=== PATIENT | female | born 1965 | race Caucasian/White ===

== ENCOUNTER 2019-04-29 15:24 | Emergency (ER) | payer OTHER ==
[~2019-04-29] VITALS: Ht 154.9 cm; Wt 83.9 kg
[2019-04-29 15:39] VITALS: BP 175/107; Ht 154.9 cm; Wt 83.9 kg
== END 2019-04-29 17:25 | disposition home or self-care (01) ==
LOC: ED 15:24
DX: J02.9 Acute pharyngitis, unspecified (principal); R03.0 Elevated blood-pressure reading, without diagnosis of hypertension; G43.909 Migraine, unspecified, not intractable, without status migrainosus
CPT/HCPCS: J7512